=== PATIENT | female | born 1955 | race Caucasian/White ===

== ENCOUNTER 2023-04-17 14:52 | Outpatient (REF) | payer MEDICARE, BC, SELFPAY ==
[2023-04-17 22:10] LABS: TSH (W/Ref FT4) 1.14 uIU/mL (0.36-3.74)
== END 2023-04-17 14:53 | disposition home or self-care (01) ==
LOC: NCHCN 14:52
PROVIDERS: PCP Family Medicine; Visit Provider Family Medicine
DX: E07.9 Disorder of thyroid, unspecified (principal)
CPT/HCPCS: 84443

== ENCOUNTER 2023-11-04 15:04 | Outpatient (REF) | payer MEDICARE, BC, SELFPAY ==
--- OUTSIDE RECORDS SUMMARY | 2023-11-04 15:07 | XMS_ITS | CCD ---
Author Name Unknown Address [address] [place] [address] [phone] Organization Unknown Address [address] [place] [address] [phone] Care Team Providers Care Buffet Attendant Name Role Phone ASCENCION MAYERS Attending Physician [phone] Vital Signs Unknown or Not Available. Allergies Unknown or Not Available. Procedures Unknown or Not Available. History of Immunizations Unknown or Not Available. Problems Problem Code Start Date Resolved Date Status Hypothyroidism 18578725 10/24/2023 Resolved High cholesterol 14740568 10/24/2023 Resolved CAD 51359540 10/24/2023 Resolved Results SUSANNA KISERX* - Nickolas ect Date/Time: 05/10/2022 10:38 Test Name Code Test Result Test Units Test Ref Rang e Tier- 11288-0 PRE-OP N/A SARS COV2 RNA: 07240-8 NEGATIVE N/A REFERENCE RANGE: NEGAT Active Medications Medication Code Dose Units Frequency Route Modificatio n Start Date/Time Pyridium 100MG Oral Tablet 4352817 1 TABLET NEEDED EVERY 8 HOURS ORAL 10/24/2023 23:37 Prescription Detail TAKE 1 TABLET ORAL NEEDED EVERY 8 SILVINA RS FOR Pain Cefuroxime Axetil 500MG Oral Tablet 949704 1 TABLET TWICE A DAY ORAL 10/24/2023 23:36 Prescription Detail TAKE 1 TABLET ORAL TWICE A DAY Medications Administered During Visit Unknown or Not Available. Encounters Encounter Diagnosis Diagnosis Code Start Date Pre-surgery testing [id number] 05/10/2022 Social History Smoking Status Code Start Date End Date Former smoker [id number] 11/09/1979 Patient Decision Aids Unknown or Not Available. Discharge Instructions You were admitted to [facility] on 05/10/2022 16:08 with a principal diagnosis of Encounter for preprocedural laboratory examination You had the following tests done:SUSANNA COVID RHEONIX* You were discharged from [facility] on 05/10/2022 16:08 Should you have any questions prior to discharge, please contact a member of your healthcare team. If you have left the hospital and have any questions, please contact your primary care physician. Chief Complaint and Reason For Visit Unknown or Not Available. Function Status Unknown or Not Available. Plan of Care Unknown or Not Available. Referral/Transition of Care Unknown or Not Available.
--- OUTSIDE RECORDS SUMMARY | 2023-11-04 15:07 | XMS_ITS | CCD ---
Author Name Unknown Address [address] [place] [address] [id number] Organization Unknown Address [address] [place] [address] [phone] Care Team Providers Care Chemical Plant Operator Name Role Phone YAYA BACH MD Attending Physician [phone] Vital Signs Unknown or Not Available. Allergies Unknown or Not Available. Procedures Unknown or Not Available. History of Immunizations Unknown or Not Available. Problems Problem Code Start Date Resolved Date Status Hypothyroidism 37779151 10/24/2023 Resolved High cholesterol 05199835 10/24/2023 Resolved CAD 22627974 10/24/2023 Resolved Results Unknown or Not Available. Active Medications Medication Code Dose Units Frequency Route Modificatio n Start Date/Time Pyridium 100MG Oral Tablet 1808779 1 TABLET NEEDED EVERY 8 HOURS ORAL 10/24/2023 23:37 Prescription Detail TAKE 1 TABLET ORAL NEEDED EVERY 8 SILVINA RS FOR Pain Cefuroxime Axetil 500MG Oral Tablet 280789 1 TABLET TWICE A DAY ORAL 10/24/2023 23:36 Prescription Detail TAKE 1 TABLET ORAL TWICE A DAY Medications Administered During Visit Unknown or Not Available. Encounters Encounter Diagnosis Diagnosis Code Start Date Arthralgia of the ankle and/or foot 569902558 06/11/2021 Social History Smoking Status Code Start Date End Date Former smoker [id number] 11/09/1979 Patient Decision Aids Unknown or Not Available. Discharge Instructions You were admitted to [facility] on 06/11/2021 15:21 with a principal diagnosis of Pain in left ankle and joints of left foot You were discharged from [facility] on 06/11/2021 15:21 Should you have any questions prior to [...]
--- OUTSIDE RECORDS SUMMARY | 2023-11-04 15:07 | XMS_ITS | CCD ---
Author Name Unknown Address [address] [place] [address] [phone] Organization Unknown Address [address] [place] [address] [phone] Care Team Providers Care Store Clerk Name Role Phone [facility] Attending Physician [phone] Vital Signs Unknown or Not Available. Allergies Unknown or Not Available. Procedures Unknown or Not Available. History of Immunizations Unknown or Not Available. Problems Problem Code Start Date Resolved Date Status Hypothyroidism 64131068 10/24/2023 Resolved High cholesterol 86722959 10/24/2023 Resolved CAD 26946865 10/24/2023 Resolved Results Unknown or Not Available. Active Medications Medication Code Dose Units Frequency Route Modificatio n Start Date/Time Pyridium 100MG Oral Tablet 3846712 1 TABLET NEEDED EVERY 8 HOURS ORAL 10/24/2023 23:37 Prescription Detail TAKE 1 TABLET ORAL NEEDED EVERY 8 SILVINA RS FOR Pain Cefuroxime Axetil 500MG Oral Tablet 783783 1 TABLET TWICE A DAY ORAL 10/24/2023 23:36 Prescription Detail TAKE 1 TABLET ORAL TWICE A DAY Medications Administered During Visit Unknown or Not Available. Encounters Unknown or Not Available. Social History Smoking Status Code Start Date End Date Former smoker [id number] 11/09/1979 Patient Decision Aids Unknown or Not Available. Discharge Instructions You were admitted to [facility] on 07/04/2022 11:37 You were discharged from [facility] on 07/04/2022 11:37 Should you have any questions prior to [...]
--- OUTSIDE RECORDS SUMMARY | 2023-11-04 15:07 | XMS_ITS | CCD ---
Author Name Unknown Address [address] [place] [address] [phone] Organization Unknown Address [address] [place] [address] [phone] Care Team Providers Care Filtrose Crusher Name Role Phone NERISSA BARRIOS Attending Physician [phone] NERISSA BARRIOS Er Physician 2 [phone] MIRIAM Phelps Registered Nurse [phone] Vital Signs Vital Sign Value Unit Date/Time Recent/Initial ? BMI (Body Mass Index) 23.57 kg/m^2 10/24/2023 20: 44 Initial VS Weight Measured 155 lbs 10/24/2023 20:44 Ini tial VS Height 68 in 10/24/2023 20:44 Initial VS BSA (Body Surface Area) 1.84 m^2 10/24/2023 2 0:44 Initial VS BP Systolic 135 mmHg 10/24/2023 20:44 Initial VS BP Diastolic 101 mmHg 10/24/2023 20:44 Initia l VS Respiratory Rate 20 bpm 10/24/2023 20:44 In itial VS Heart Rate 120 bpm 10/24/2023 20:44 Initial VS O2 % BldC Oximetry 98 % 10/24/2023 20:44 Initial VS Body Temperature 36.1 degrees 10/24/2023 20:44 In itial VS Respiratory Rate 16 bpm 10/24/2023 23:[address] Recent VS O2 % BldC Oximetry 99 % 10/24/2023 23:00 Most Recent VS Body Temperature 37 degrees 10/24/2023 23:[address] Recent VS BP Systolic 102 mmHg 10/24/2023 23:39 Most Re cent VS BP Diastolic 68 mmHg 10/24/2023 23:39 Most R ecent VS Heart Rate 86 bpm 10/24/2023 23:39 Most Rec ent VS Allergies Allergy Code Allergy Type Reaction Status AUGMENTIN 377236 Drug allergy RASH; Diarrhea; Nausea/ Vomiting Active CODEINE 2670 Drug allergy CONFUSION Active METRONIDAZOLE 6922 Drug allergy Anaphylaxis Active Procedures Unknown or Not Available. History of Immunizations Unknown or Not Available. Problems Problem Code Start Date Resolved Date Status Hypothyroidism 95400688 10/24/2023 Resolved High cholesterol 68280928 10/24/2023 Resolved CAD 40804885 10/24/2023 Resolved Results BASIC METABOLIC PANEL (BMP) - Collect Date/Time: 10/24/2023 20:43 Test Name Code Test Result Test Units Test Ref Rang e GLUCOSE 2345-7 102 mg/dL L=70 H=116 BUN 3094-0 14 mg/dL L=6 H=25 CREATININE 2160-0 0.99 mg/dL L=0.51 H=0.95 SODIUM SERUM 2951-2 141 mmol/L L=136 H=145 POTASSIUM SERUM 2823-3 3.2 mmol/L L=3.4 H=5 .2 CHLORIDE SERUM 2075-0 104 mmol/L L=96 H=110 CARBON DIOXIDE (CO2) 2028-9 23 mmol/L L=22 H=34 ANION GAP 18159-1 14.3 mmol/L CALCIUM SERUM 06108-4 9.1 mg/dL L=8.2 H=10. 2 AGE 67 years eGFR (non-Afr.Amer.) 83995-3 56 mL/min eGFR (Afr-Citizen [place]) 04395-8 68 mL/min CBC W/ DIFFERENTIAL* - Colle ct Date/Time: 10/24/2023 20:43 Test Name Code Test Result Test Units Test Ref Rang e WBC 6690-2 9.06 th/cmm L=5.00 H=10.00 NEUT % 64.6 % L=40.0 H=80.0 LYMPH % 23.7 % L=10.0 H=50.0 MONO % 60598-8 9.1 % L=2.0 H=12.0 EOS % 1.2 % L=0.0 H=8.0 BASO % 0.6 % L=0.0 H=3.0 IG % 2514-8 0.8 % L=0.0 H=1.1 NRBC % 58910-6 0.0 % L=0.0 H=0.0 NEUT abs count 751-8 5.9 th/cmm L=1.6 H=8. 4 LYMPH abs count 731-0 2.2 th/cmm L=1.5 H=4 .0 MONO abs count 742-7 0.8 th/cmm L=0.2 H=1. 0 EOS abs count 711-2 0.1 th/cmm L=0.0 H=0.5 BASO abs count 704-7 0.1 th/cmm L=0.0 H=0. 2 IG abs count 02273-3 0.1 th/cmm L=0.0 H=0.1 NRBC abs count 47606-2 0.0 mil/cmm L=0.0 H=0. 0 RBC 789-8 4.19 mil/cmm L=3.90 H=5.40 HEMOGLOBIN 718-7 13.8 gm/dL L=12.0 H=16.0 HEMATOCRIT 4544-3 40 % L=37 H=47 MCV 787-2 95 fL L=82 H=92 MCH 785-6 32.9 pg L=27.0 H=31.0 MCHC 786-4 34.8 % L=32.0 H=36.0 RDW-SD 788-0 43.9 fL L=39.0 H=49.0 PLATELET COUNT 777-3 283 th/cmm L=150 H=45 0 CULT URINE CULTURE* - [facility] t Date/Time: 10/24/2023 20:43 Test Name Code Test Result Test Units Test Ref Rang e COLLECTION MODE: 62194-4 CLEAN CATCH N/A URINALYSIS WITH MICROSCOPIC* - Collect Date/Time: 10/24/2023 20:43 Test Name Code Test Result Test Units Test Ref Rang e COLLECTION MODE: 96281-5 CLEAN CATCH N/A Color 5778-6 STRAW N/A yellow Appearance 5767-9 CLEAR N/A clear Glucose urine 04665-7 NEGATIVE N/A negative mg /dl Bilirubin 5770-3 NEGATIVE N/A negative Ketones 2514-8 TRACE N/A negative mg/dl Spec gravity 5811-5 <=1.005 N/A 1.003 - 1.03 0 pH urine 2756-5 6.0 N/A 5.0 - 7.0 Protein 45576-4 NEGATIVE N/A negative mg/dl Urobilinogen 00899-7 0.2 N/A <or= 1 EU/dl Nitrite 5802-4 NEGATIVE N/A negative Blood 5794-3 MODERATE N/A negative Leukocytes 29845-7 MODERATE N/A negative WBCs 06876-5 10-25 N/A 0-5 / hpf RBCs 43734-4 0-5 N/A 0-5 / hpf Epith cells none N/A 0-5 / hpf Crystals none N/A none Bacteria none N/A none Mucus none N/A none Casts none N/A none /lpf Active Medications Unknown or Not Available. Medications Administered During Visit Medication Dose Units Frequency Route Date/Time of Last Dose FentaNYL INJ SDV: 100MCG/2ML 50 MCG X1 I LIGHT RAIL TRAIN OPERATOR 10/24/2023 21:00 PHENAZOPYRIDINE TABLET: 100MG 100 MG X1 PO 10/24/2023 22:59 CEFUROXIME TABLET: 250MG 500 MG X1 PO 10/24/2023 22:59 ACETAMINOPHEN INJ IVPB: 1000MG/100ML 1000 MG X1 IVPB 10/24/2023 23:1 1 PHENAZOPYRIDINE TABLET: 100MG 100 MG X1 PO 10/24/2023 23:43 CEFUROXIME TABLET: 250MG 500 MG X1 PO 10/24/2023 23:43 Encounters Unknown or Not Available. Social History Smoking Status Code Start Date End Date Former smoker [id number] 11/09/1979 Patient Decision Aids Unknown or Not Available. Discharge Instructions You were admitted to [facility] on 10/24/2023 20:33 You had the following tests done:BASIC METABOLIC PANEL (BMP)CBC W/ DIFFERENTIAL*CULT URINE CULTURE*URINALYSIS WITH MICROSCOPIC* You were discharged from [facility] on 10/24/2023 23:48 Should you have any questions prior to discharge, please contact a member of your healthcare team. If you have left the hospital and have any questions, please contact your primary care physician. Chief Complaint and Reason For Visit Chief Complaint Date of Onset SEVERE LOWER BACK AND PELVIC PAIN 2022 Function Status Unknown or Not Available. Plan of Care Unknown or Not Available. Referral/Transition of Care Unknown or Not Available.
--- OUTSIDE RECORDS SUMMARY | 2023-11-04 15:07 | XMS_ITS | CCD ---
Author Name Unknown Address [address] [place] [address] [phone] Organization Unknown Address [address] [place] [address] [phone] Care Team Providers Care Sander Hand Name Role Phone WILI QUINTERO Attending Physician [phone] JARED HALLing (Secondary) Physician [phone] Vital Signs Unknown or Not Available. Allergies Unknown or Not Available. Procedures Unknown or Not Available. History of Immunizations Unknown or Not Available. Problems Problem Code Start Date Resolved Date Status Hypothyroidism 04293026 10/24/2023 Resolved High cholesterol 51217973 10/24/2023 Resolved CAD 74257309 10/24/2023 Resolved Results Unknown or Not Available. Active Medications Medication Code Dose Units Frequency Route Modificatio n Start Date/Time Pyridium 100MG Oral Tablet 2945361 1 TABLET NEEDED EVERY 8 HOURS ORAL 10/24/2023 23:37 Prescription Detail TAKE 1 TABLET ORAL NEEDED EVERY 8 SILVINA RS FOR Pain Cefuroxime Axetil 500MG Oral Tablet 191461 1 TABLET TWICE A DAY ORAL 10/24/2023 23:36 Prescription Detail TAKE 1 TABLET ORAL TWICE A DAY Medications Administered During Visit Unknown or Not Available. Encounters Encounter Diagnosis Diagnosis Code Start Date Stress incontinence (female) (male) N393 05/14/2023 Social History Smoking Status Code Start Date End Date Former smoker 1127731 11/09/1979 Patient Decision Aids Unknown or Not Available. Discharge Instructions You were admitted to [facility] on 05/14/2023 14:51 with a principal diagnosis of Stress incontinence (female) (male) You were discharged from [facility] on 06/29/2023 12:25 Should you have any questions prior to [...]
--- OUTSIDE RECORDS SUMMARY | 2023-11-04 15:07 | XMS_ITS | CCD ---
Author Name Unknown Address [address] [place] [address] [phone] Organization Unknown Address [address] [place] [address] [phone] Care Team Providers Care Business Systems Administrator Name Role Phone MELYSSA MEEHAN Attending Physician 0 Vital Signs Unknown or Not Available. Allergies Unknown or Not Available. Procedures Unknown or Not Available. History of Immunizations Unknown or Not Available. Problems Problem Code Start Date Resolved Date Status Hypothyroidism 30086268 10/24/2023 Resolved High cholesterol 69182484 10/24/2023 Resolved CAD 66498300 10/24/2023 Resolved Results Unknown or Not Available. Active Medications Medication Code Dose Units Frequency Route Modificatio n Start Date/Time Pyridium 100MG Oral Tablet 6692324 1 TABLET NEEDED EVERY 8 HOURS ORAL 10/24/2023 23:37 Prescription Detail TAKE 1 TABLET ORAL NEEDED EVERY 8 SILVINA RS FOR Pain Cefuroxime Axetil 500MG Oral Tablet 853666 1 TABLET TWICE A DAY ORAL 10/24/2023 23:36 Prescription Detail TAKE 1 TABLET ORAL TWICE A DAY Medications Administered During Visit Unknown or Not Available. Encounters Encounter Diagnosis Diagnosis Code Start Date Pain in left ankle and joints of left foot M2557 2 04/25/2021 Social History Smoking Status Code Start Date End Date Former smoker 9329023 11/09/1979 Patient Decision Aids Unknown or Not Available. Discharge Instructions You were admitted to [facility] on 04/25/2021 19:09 with a principal diagnosis of Pain in left ankle and joints of left foot You were discharged from [facility] on 04/25/2021 19:09 Should you have any questions prior to [...]
--- OUTSIDE RECORDS SUMMARY | 2023-11-04 15:08 | XMS_ITS | CCD ---
Author Name Unknown Address [address] [place] [address] [phone] Organization Unknown Address [address] [place] [address] [phone] Care Team Providers Care Human Service Technician Name Role Phone YAYA BACH MD Attending Physician [phone] Vital Signs Unknown or Not Available. Allergies Unknown or Not Available. Procedures Unknown or Not Available. History of Immunizations Unknown or Not Available. Problems Problem Code Start Date Resolved Date Status Hypothyroidism 80262923 10/24/2023 Resolved High cholesterol 25667548 10/24/2023 Resolved CAD 57034059 10/24/2023 Resolved Results Unknown or Not Available. Active Medications Medication Code Dose Units Frequency Route Modificatio n Start Date/Time Pyridium 100MG Oral Tablet 2986572 1 TABLET NEEDED EVERY 8 HOURS ORAL 10/24/2023 23:37 Prescription Detail TAKE 1 TABLET ORAL NEEDED EVERY 8 SILVINA RS FOR Pain Cefuroxime Axetil 500MG Oral Tablet 765339 1 TABLET TWICE A DAY ORAL 10/24/2023 23:36 Prescription Detail TAKE 1 TABLET ORAL TWICE A DAY Medications Administered During Visit Unknown or Not Available. Encounters Encounter Diagnosis Diagnosis Code Start Date Achilles tendinitis, left leg M7662 Social History Smoking Status Code Start Date End Date Former smoker 2818811 11/09/1979 Patient Decision Aids Unknown or Not Available. Discharge Instructions You were admitted to [facility] on 04/30/2021 08:17 with a principal diagnosis of Achilles tendinitis, left leg You were discharged from [facility] on 04/30/2021 08:17 Should you have any questions prior to [...]
[2023-11-04 15:13] LABS: BUN 15 mg/dL (7-18); CREATININE 1.1 mg/dL (0.55-1.02); Chloride 104 mmol/L (98-107); Estimated GFR 55.42 (mL/min/1.73m2); Glucose 116 mg/dL (74-106); Sodium 140 mmol/L (136-145); TSH 1.45 uIU/mL (0.36-3.74)
== END 2023-11-04 15:05 | disposition home or self-care (01) ==
LOC: NCHCN 15:04
PROVIDERS: PCP Family Medicine; Visit Provider Family Medicine
DX: E03.9 Hypothyroidism, unspecified (principal); R79.89 Other specified abnormal findings of blood chemistry
CPT/HCPCS: 80048; 84443

== ENCOUNTER 2024-03-31 11:39 | Outpatient (REF) | payer MEDICARE, BC, SELFPAY ==
[2024-03-31 15:53] LABS: HGB 13.3 g/dL (11.2-15.7); MCH 32.3 pg (27.0-33.0); MCHC 33.3 % (32.0-36.0); MCV 97 fL (80-95); MPV 9.9 fL (8.0-11.0); Platelet Count 266 10^3/uL (130-400); RBC 4.12 10^6/uL (3.93-5.22); RDW-SD 46.4 fL; WBC 3.98 10^3/uL (4.4-10.8)
[2024-03-31 16:55] LABS: ALT 44 U/L (14-59); AST 31 U/L (15-37); Albumin 4.1 g/dL (3.4-5.0); Alkaline Phosphatase 53 U/L (46-116); Anion Gap 3.5 mmol/L (3-11); BUN 17 mg/dL (7-18); Bilirubin, Total 0.7 mg/dL (0.2-1.0); CO2 28.5 mmol/L (21.0-32.0); Chloride 104 mmol/L (98-107); Estimated GFR 61.75 (mL/min/1.73m2); Ferritin 236 ng/mL (8-252); Glucose 105 mg/dL (74-106); Potassium 3.7 mmol/L (3.5-5.1); Sodium 136 mmol/L (136-145); TSH (W/Ref FT4) 1.98 uIU/mL (0.36-3.74); Total Protein 7.1 g/dL (6.4-8.2)
[2024-04-01 12:48] LABS: Creatine Kinase 83 U/L (26-192)
== END 2024-03-31 11:40 | disposition home or self-care (01) ==
LOC: NCHCN 11:39
PROVIDERS: PCP Family Medicine; Visit Provider Family Medicine
DX: G25.81 Restless legs syndrome (principal); E55.9 Vitamin D deficiency, unspecified; E03.9 Hypothyroidism, unspecified; E78.5 Hyperlipidemia, unspecified
CPT/HCPCS: 80053; 82306; 82550; 85027; 82728; 83735; 84443

== ENCOUNTER 2025-05-01 15:20 | Outpatient (REF) | payer MEDICARE, BC, SELFPAY ==
[2025-05-01 15:38] LABS: Hemoglobin A1C 5.8 % (<5.7)
[2025-05-01 16:09] LABS: ALT 30 U/L (14-59); AST 22 U/L (15-37); Albumin 3.9 g/dL (3.4-5.0); Alkaline Phosphatase 56 U/L (46-116); Anion Gap 4.2 mmol/L (3-11); BUN 14 mg/dL (7-18); Bilirubin, Total 0.8 mg/dL (0.2-1.0); CO2 31.8 mmol/L (21.0-32.0); CREATININE 1.1 mg/dL (0.55-1.02); Calcium 8.8 mg/dL (8.5-10.1); Chloride 103 mmol/L (98-107); Estimated GFR 54.73 (mL/min/1.73m2); Glucose 110 mg/dL (74-106); Potassium 3.8 mmol/L (3.5-5.1); Sodium 139 mmol/L (136-145); TSH (W/Ref FT4) 1.91 uIU/mL (0.36-3.74); Total Protein 6.8 g/dL (6.4-8.2); Vitamin D 25 Total 22 ng/mL (30-100)
== END 2025-05-01 15:21 | disposition home or self-care (01) ==
LOC: NCHCN 15:20
PROVIDERS: PCP Family Medicine; Visit Provider Family Medicine
DX: R73.9 Hyperglycemia, unspecified (principal); E03.9 Hypothyroidism, unspecified; E55.9 Vitamin D deficiency, unspecified
CPT/HCPCS: 80053; 82306; 83036; 84443